=== PATIENT | female | born 1985 | race African-American/Black ===

== ENCOUNTER 2016-10-26 04:06 | Emergency (ER) | payer BC, SELFPAY ==
--- NOTE | 2016-10-26 04:14 | EDM.PDOC ---
ED HPI GI/ABDOMINAL - General Chief Complaint: Gastrointestinal Problem Stated Complaint: RIGHT SIDE PAIN Time Seen by Provider: 10/26/16 04:14 Source of Information: Reports: Patient History Limitations: Reports: No limitations - History of Present Illness INITIAL COMMENTS - FREE TEXT/NARRATIVE: 30-year-old female who is 3-1/2 weeks presents the ED with sudden onset of severe right lateral chest pain. Strong pleuritic component to the pain with every breath hurting. Awoke from sleep around 0300 hours with this pain. When she went to bed she was feeling fine. Her baby was born at 29 weeks gestation and is in [facility] unit. Born by due to severe pre eclampsia. She is traveling frequently by car on a daily basis to [place] of course to spend time with the infant. She was breast-feeding but is not producing much breast milk at this time. He took some Motrin about an hour ago and feels the pain is certainly relieved by this. Current pain is 3/10. She's had a mild cough a few days ago but has not bring up much sputum. Does not feel short of breath. Has not noticed any swelling of her lower extremities. Symptom Onset Date: 10/26/16 Symptom Onset Time: 02:30 (Awoke from sleep with severe pleuritic right-sided chest pain.) Timing/Duration: Reports: Minutes:, Improving Location: other (Right lateral chest pain) Quality: Reports: stabbing, other Severity: moderate Improves with: Denies: defecating Worsens with: Denies: defecating Context: Reports: other (3-1/2 weeks .). Denies: sick contact, bad/ questionable food, out of country travel, recent surgery, recent trauma Associated Symptoms (-Female): Reports: chest pain. 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) - Related Data Allergies/ADRs: Allergies Allergy/AdvReac Type Severity Reaction Status Date / Time No Known Allergies Allergy Verified 10/26/16 04:16 Home Meds: Home Meds Labetalol HCl [Labetalol] 200 mg PO DAILY 10/26/16 [History] Rivaroxaban [Xarelto] 15 mg PO BID #42 tablet 10/26/16 [Rx] Rivaroxaban [Xarelto] 20 mg PO DAILY #30 tablet 10/26/16 [Rx] oxyCODONE HCl/Acetaminophen [Percocet 5-325 mg Tablet] 1 - 2 each PO Q4H PRN # 15 tablet 10/26/16 [Rx] Past Medical History Cardiovascular History: Reports: Hypertension - Past Surgical History GI Surgical History: Reports: Cholecystectomy Social & Family History - Living Situation & Occupation Living situation: Reports: Occupation: unemployed Social History Comment: He is 3-1/2 weeks . Baby was born prematurely at 29 weeks gestation. ED ROS GENERAL - Review of Systems Review Of Systems: See Below Constitutional: Reports: fatigue. Denies: fever, chills, malaise, weakness, decreased appetite, weight loss HEENT: Reports: No symptoms Respiratory: Reports: Pleuritic Chest Pain. Denies: Shortness of Breath, Wheezing (See history of present illness), Cough, Sputum, Hemoptysis, Other Cardiovascular: Reports: Chest pain. Denies: Blood pressure problem (See history present illness), Claudication, Dyspnea on exertion, Edema, Lightheadedness, Orthopnea, Palpitations Endocrine: Reports: no symptoms GI/Abdominal: Reports: No symptoms : Reports: no symptoms Musculoskeletal: Reports: no symptoms Skin: Reports: no symptoms Neurological: Reports: No Symptoms Psychiatric: Reports: No symptoms Hematologic/Lymphatic: Reports: no symptoms Immunologic: Reports: no symptoms ED EXAM, GI/ABD - Physical Exam Exam: See Below Exam Limited By: No limitations General Appearance: alert, WD/WN, anxious, mild distress Eyes: bilateral: normal appearance Neck: normal inspection, supple, non-tender, full range of motion. No: lymphadenopathy (L), lymphadenopathy (R) Respiratory/Chest: no respiratory distress, lungs clear, normal breath sounds, no accessory muscle use, other (Not able to localize the pain anywhere in her chest wall or along her lateral ribs on the right side. I can compress the ribs without any exacerbation of pain. Similarly) Cardiovascular: normal peripheral pulses, regular rate, rhythm, no edema, no gallop, no murmur GI/Abdominal: normal bowel sounds, soft, non tender, no organomegaly, no distention, no abnormal bruit, other ( wound --Pfanastiel incision is healing well.) Back Exam: normal inspection, full range of motion Extremities: normal inspection, normal range of motion, non-tender, no pedal edema, normal capillary refill, other (No evidence of DVT.) Neurological: alert, oriented, CN II-XII intact, normal cognition Psychiatric: normal affect, normal mood Skin Exam: Warm, Dry, Normal color, No rash Course - Vital Signs Last Recorded V/S: Last Vital Signs Temp 36.5 C 10/26/16 04:12 Pulse 95 10/26/16 04:12 Resp 16 10/26/16 04:12 BP 137/85 10/26/16 04:12 Pulse Ox 99 10/26/16 04:12 - Orders/Labs/Meds Orders: Active Orders 24 hr Category Date Time Status Chest 2V [CR] Stat Exams 10/26/16 04:31 Taken Chest PE [Ang Chest] [CT] Stat Exams 10/26/16 05:29 Taken Sodium Chloride 0.9% [Normal Saline] 1,000 ml Med 10/26/16 05:30 Active IV ASDIRECTED Sodium Chloride 0.9% [Normal Saline] 100 ml Med 10/26/16 06:00 Active IV ASDIRECTED Medication Orders Sodium Chloride (Normal Saline) 1,000 mls @ 100 mls/hr IV ASDIRECTED MARTÍNEZ Last Admin: 10/26/16 05:36 Dose: 100 mls/hr Sodium Chloride (Normal Saline) 100 mls @ 60 mls/hr IV ASDIRECTED MARTÍNEZ Last Admin: 10/26/16 06:09 Dose: 60 mls/hr Labs: Laboratory Tests 10/26/16 10/26/16 10/26/16 Range/Units 04:45 04:45 04:45 WBC 8.88 (3.98-10.04) K/mm3 RBC 4.51 (3.98-5.22) M/mm3 Hgb 11.0 L (11.2-15.7) gm/L Hct 34.4 (34.1-44.9) % MCV 76.3 L (79.4-94.8) fl MCH 24.4 L (25.6-32.2) pg MCHC 32.0 L (32.2-35.5) g/dl RDW Std Deviation 45.1 (36.4-46.3) fL Plt Count 366 (182-369) K/mm3 MPV 9.2 L (9.4-12.3) fl Neutrophils % (Manual) 70 H (40-60) % Band Neutrophils % 0 (0-10) % Lymphocytes % (Manual) 21 (20-40) % Atypical Lymphs % 0 % Monocytes % (Manual) 6 (2-10) % Eosinophils % (Manual) 3 (0.7-5.8) % Basophils % (Manual) 0 L (0.1-1.2) Platelet Estimate Adequate RBC Morph Comment Normal D-Dimer, Quantitative 10.07 H (0.19-0.59) mg/L Sodium 137 (136-145) mEq/L Potassium 3.5 (3.5-5.1) mEq/L Chloride 101 (98-107) mEq/L Carbon Dioxide 25 (21-32) mEq/L Anion Gap 14.5 (5-15) BUN 11 (7-18) mg/dL Creatinine 1.0 (0.55-1.02) mg/dL Est Cr Clr Drug Dosing 66.24 mL/min Estimated GFR (MDRD) > 60 (>60) mL/min BUN/Creatinine Ratio 11.0 L (14-18) Glucose 113 H (74-106) mg/dL Calcium 9.0 (8.5-10.1) mg/dL Total Bilirubin 0.2 (0.2-1.0) mg/dL AST 15 (15-37) U/L ALT 25 (14-59) U/L Alkaline Phosphatase 134 H (46-116) U/L C-Reactive Protein 7.3 H* (<1.0) mg/dL Total Protein 7.5 (6.4-8.2) g/dl Albumin 3.1 L (3.4-5.0) g/dl Globulin 4.4 gm/dL Albumin/Globulin Ratio 0.7 L (1-2) Meds: Medications Generic Name Dose Route Start Last Admin Trade Name Freq PRN Reason Stop Dose Admin Sodium Chloride 1,000 mls @ 100 mls/hr 10/26/16 05:30 10/26/16 05:36 Normal Saline IV 100 mls/hr ASDIRECTED MARTÍNEZ Administration Sodium Chloride 100 mls @ 60 mls/hr 10/26/16 06:00 10/26/16 06:09 Normal Saline IV 60 mls/hr ASDIRECTED MARTÍNEZ Administration Discontinued Medications Generic Name Dose Route Start Last Admin Trade Name Bennett PRN Reason Stop Dose Admin Iopamidol 100 ml 10/26/16 05:52 10/26/16 06:09 [id number] (76%) IVPUSH 10/26/16 05:53 70 ml ONETIME ONE Administration Iopamidol 50 ml 10/26/16 05:52 10/26/16 06:09 [id number] (76%) IVPUSH 10/26/16 05:53 10 ml ONETIME ONE Administration Sodium Chloride 10 ml 10/26/16 05:52 10/26/16 06:09 Saline Flush FLUSH 10/26/16 05:53 10 ml ONETIME ONE Administration - Radiology Interpretation Free Text/Narrative:: 30-year-old female with [place] descent presents to the ED for evaluation of acute onset of pleuritic right-sided chest pain that awoke her from sleep around 0-30 hours this morning. She was recently ill with an upper respiratory tract infection but she states her cough is quite mild at that time. She has no associated fever or chills. No she is 3-1/2 weeks and her baby was born at 29 weeks gestation. She been traveling daily to [place] to the unit to see the baby. No history of DVT. She took Motrin and the pain has subsided a good deal she rates it as a 2 or 3/10 now. Every breath was very painful initially. Oxygen saturations is 99% in the ED and she is not reveal any signs of respiratory distress. Plan d-dimer will be done with routine lab work including a CRP. 2 view chest x-ray will be obtained as well. - Re-Assessments/Exams Free Text/Narrative Re-Assessment/Exam: 10/26/16 05:00: Two-view chest x-ray reveals mild infiltrate in the inferior portion of the right lung adjacent to the heart .Heart silhouette is normal. 10/26/16 05:20 lab work reveals a normal white count however to 8.88. Differential pending hemoglobin is 11 with hematocrit of 34.4 platelets normal 266,000. Chemistry shows sodium of 137 potassium 3.5 CRP is elevated at 7.3. D- dimer and differential pending. 10/26/16 05:28 Lab called over with critical value. D-Dimer is 10.7. She will thus have IV started with normal saline at 100 mils per hour. Creatinine is 1.0. She will have CT pulmonary angiogram carried out. She reports her pleuritic chest pain is still minor . 10/26/16 06:[address] pulmonary angiogram and it does prove positive for right-sided pulmonary emboli. There is a abnormal focus in the posterior aspect of the right lung suggesting either pulmonary infarction or atelectasis. She'll be treated with Lovenox 90 mg subcutaneously in the abdominal wall until decisions can be made about penitentiary treatment. 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 He'll have labs come and do routine labs for antiphospholipid antibodies factor V mutation or deficiency. Antithrombin deficiency and protein C and protein S. abnormalities. She has a followup appointment with Dr. Gregory tomorrow. I will leave it up to him to help her establish with a physician who will continue to manage her pulmonary embolism. She was advised that she can no longer use NSAIDs such as Motrin which he is taking anticoagulants. I will give her a 15 tablets of Percocet 5 325 mg strength to be taken one tablet every 4-6 hours as needed for pleuritic right-sided chest pain. Departure - Departure Time of Disposition: 06:45 Disposition: Home, Self-Care 01 Condition: fair Clinical Impression: Pulmonary embolism Qualifiers: Pulmonary embolism type: other Chronicity: acute Acute cor pulmonale presence: without acute cor pulmonale Qualified Code(s): I26.99 - Other pulmonary embolism without acute cor pulmonale Prescriptions: Rivaroxaban [Xarelto] 15 mg PO BID #42 tablet Rivaroxaban [Xarelto] 20 mg PO DAILY #30 tablet oxyCODONE HCl/Acetaminophen [Percocet 5-325 mg Tablet] 1 - 2 each PO Q4H PRN # 15 tablet PRN Reason: pain relief. Additional Instructions: Evaluation in the emergency room today in regards to waking from sleep with severe right-sided pleuritic chest pain about 0-30 hours this morning. History reveals a was carried out 3 and half weeks ago to 2 preeclampsia. Baby was born at 29 weeks gestation remains in the care unit in [place]. Plenty of travel almost on a daily basis to see the infant plus recent surgery placed you at increased risk of blood clot formation in your lower extremities. Investigations done through the emergency room today revealed pulmonary embolism or blood clots within the right lung as the cause appear sharp stabbing pain. Further lab tests ordered to see if there is any genetic abnormalities making you were more likely to have blood clots have been ordered. This helps us decide on how long he will need anticoagulant medication. You're given a shot of Lovenox in the emergency room today to start preventing further clotting from occurring. This will last 12 hours. As we discussed you have opted to start Xarelto medication initially 15 mg tablet twice daily which he should take first thing this morning when you get the prescription. This is taken for the first 21 days of treatment and then you are to take 20 mg tablet once daily for the next 4-1/2 months or as directed by your physician. Since she did not have primary care physician I will leave this up to Dr. Gregory to help you decide who to see in terms of followup of pulmonary embolism. Please follow up with him tomorrow as planned. Return to medical care if you develop any fever chills or abnormal bleeding. - My Orders Last 24 Hours: My Active Orders 10/26/16 04:31 Chest 2V [CR] Stat 10/26/16 05:29 Chest PE [Ang Chest] [CT] Stat 10/26/16 05:30 Sodium Chloride 0.9% [Normal Saline] 1,000 ml IV ASDIRECTED 10/26/16 06:00 Sodium Chloride 0.9% [Normal Saline] 100 ml IV ASDIRECTED - Assessment/Plan Last 24 Hours: My Active Orders 10/26/16 04:31 Chest 2V [CR] Stat 10/26/16 05:29 Chest PE [Ang Chest] [CT] Stat 10/26/16 05:30 Sodium Chloride 0.9% [Normal Saline] 1,000 ml IV ASDIRECTED 10/26/16 06:00 Sodium Chloride 0.9% [Normal Saline] 100 ml IV ASDIRECTED
[2016-10-26 04:17] VITALS: BP 137/85
[2016-10-26] MEDS ORDERED: Sodium Chloride 0.9% 1,000 ML IV SCH (05:30)
[2016-10-26] MEDS ORDERED: Iopamidol 755 MG/ML 50 ML Bottle IVPUSH ONE (05:52)
[2016-10-26] MEDS ORDERED: Sodium Chloride 0.9% 10 ML Syringe FLUSH ONE (05:52)
[2016-10-26] MEDS ORDERED: Iopamidol 755 Mg/ML 100 ML Bottle IVPUSH ONE (05:52)
[2016-10-26] MEDS ORDERED: Sodium Chloride 0.9% 100 ML IV SCH (06:00)
[2016-10-26] MEDS ORDERED: Enoxaparin 100 MG/1 ML Syringe SUBCUT ONE (06:28)
--- NOTE | 2016-10-26 06:29 | CT ---
CT chest Technique: Multiple axial sections were obtained through the chest. Intravenous contrast was utilized. Study was performed as a pulmonary angiogram protocol. Findings: Pulmonary arteries are fairly well-opacified. Filling defects are identified within the distal right segmental lower lobe artery with clot extending into the right lower lobe subsegmental arteries. No left-sided pulmonary emboli are identified. Mild parenchymal density is seen within the right lung base either due to atelectasis or developing infarct. Lungs otherwise are clear. Mediastinum shows no adenopathy or mass. No pericardial thickening is seen. Visualized upper abdominal structures appear within normal limits. Impression: 1. Right lower lobe pulmonary emboli. Adjacent parenchymal density either due to atelectasis or infarct. 2. No additional abnormality is identified on CT study of the chest. Diagnostic code #5
--- NOTE | 2016-10-26 07:43 | CR ---
Chest: Two views of the chest were obtained. Comparison: No previous chest x-ray. Heart size and mediastinum are normal. Slight parenchymal density within the right base is seen. Lungs otherwise are clear. Bony structures are unremarkable. Impression: 1. Slight increased density within the right lung base. As mentioned on subsequent chest CT, this finding is either due to atelectasis or development of infarct as patient has right lower lobe pulmonary emboli. Diagnostic code #3
== END 2016-10-26 07:02 | disposition home or self-care (01) ==
LOC: JD.ED 04:06
DX: O88.23 Thromboembolism in the puerperium (principal); I10 Essential (primary) hypertension; Z79.899 Other long term (current) drug therapy; Z90.49 Acquired absence of other specified parts of digestive tract
CPT/HCPCS: 36415; 71020; 71275; 80053; 85025; 85240; 85245; 85246; 85300; 85303; 85306; 85379; 85610; 85613; 85670; 85730; 86140; 86146; 86147; 96360; 96372; 99284; J1650; J7030; J7040; J7050; Q9967; 85598

== ENCOUNTER 2017-10-17 08:54 | Emergency (ER) | payer BC, SELFPAY ==
[2017-10-17 09:14] VITALS: BP 130/95
[2017-10-17] MEDS ORDERED: Sodium Chloride 0.9% 10 ML Syringe FLUSH PRN (09:25)
[2017-10-17] MEDS ORDERED: Sodium Chloride 0.9% 1,000 ML IV ONE (09:25)
[2017-10-17] MEDS ORDERED: Ketorolac 30 MG/ML SDV IVPUSH ONE (09:26)
[2017-10-17] MEDS ORDERED: diphenhydrAMINE 50 MG/ML SDV IVPUSH ONE (09:26)
[2017-10-17] MEDS ORDERED: Prochlorperazine 10 MG/2 ML SDV IVPUSH ONE (09:27)
--- NOTE | 2017-10-17 09:32 | EDM.PDOC ---
ED HPI GENERAL MEDICAL PROBLEM - General Chief Complaint: Headache Stated Complaint: HEADACHE Time Seen by Provider: 10/17/17 09:16 Source of Information: Reports: Patient History Limitations: Reports: No Limitations - History of Present Illness INITIAL COMMENTS - FREE TEXT/NARRATIVE: The patient presents with a frontal headache. This started about 4 days ago. She is on rifampin for latent TB. She was told she cannot take anything more then tylenol. She has no fever or chills. She does have some congestion, runny nose and cough. She has no blurred vision or double vision. She has no numbness or weakness. She does have a history of migraines. She has no nausea or vomiting. Onset: Gradual Duration: Day(s): (4) Location: Reports: Head Quality: Reports: Ache Severity: Moderate Improves with: Reports: None Worsens with: Reports: None Associated Symptoms: Reports: Headaches. Denies: Chest Pain, Cough, Fever/ Chills, Nausea/Vomiting, Shortness of Breath Headache Pain Score (Numeric/FACES): 8 - Related Data Allergies Allergy/AdvReac Type Severity Reaction Status Date / Time No Known Allergies Allergy Verified 10/17/17 09:14 Home Meds: Home Meds Rifampin 300 mg PO BID #240 cap 07/02/17 [Rx] Past Medical History Cardiovascular History: Reports: Hypertension Respiratory History: Reports: TB Genitourinary History: Reports: Renal Calculus - Past Surgical History GI Surgical History: Reports: Cholecystectomy Female Surgical History: Reports: Section Social & Family History - Tobacco Use Smoking Status *Q: Never Smoker - Caffeine Use Caffeine Use: Reports: None - Recreational Drug Use Recreational Drug Use: No - Living Situation & Occupation Living situation: Reports: Occupation: Unemployed ED ROS GENERAL - Review of Systems Review Of Systems: See Below Constitutional: Reports: No Symptoms HEENT: Reports: Other (Congestion and runny nose) Respiratory: Reports: Cough. Denies: Shortness of Breath Cardiovascular: Reports: No Symptoms Endocrine: Reports: No Symptoms GI/Abdominal: Reports: No Symptoms : Reports: No Symptoms Musculoskeletal: Reports: No Symptoms Neurological: Reports: Headache. Denies: Numbness, Weakness - Physical Exam Exam: See Below Exam Limited By: No Limitations General Appearance: Alert, No Apparent Distress Eye Exam: Bilateral Eye: EOMI, PERRL Ears: Normal External Exam Nose: Normal Inspection Head Exam: Atraumatic, Normocephalic Neck: Normal Inspection Respiratory/Chest: No Respiratory Distress, Lungs Clear, Normal Breath Sounds Cardiovascular: Regular Rate, Rhythm, No Edema, No Murmur GI/Abdominal: Soft, Non-Tender, No Organomegaly, No Mass Neuro Exam (Abbreviated): Alert, Oriented, No Motor/Sensory Deficits Course - Vital Signs Last Recorded V/S: Last Vital Signs Temp 97.8 F 10/17/17 09:11 Pulse 72 10/17/17 09:11 Resp 16 10/17/17 09:11 BP 130/95 H 10/17/17 09:11 Pulse Ox 99 10/17/17 09:11 - Orders/Labs/Meds Orders: Active Orders 24 hr Category Date Time Status Peripheral IV Care [RC] . DIRECTED Care 10/17/17 09:25 Active Sodium Chloride 0.9% [Saline Flush] Med 10/17/17 09:25 Active 10 ml FLUSH ASDIRECTED PRN Peripheral IV Insertion Adult [OM.PC] Routine Oth 10/17/17 09:25 Ordered Medication Orders Sodium Chloride (Saline Flush) 10 ml FLUSH ASDIRECTED PRN PRN Reason: Keep Vein Open Last Admin: 10/17/17 09:41 Dose: 10 ml Meds: Medications Generic Name Dose Route Start Last Admin Trade Name Freq PRN Reason Stop Dose Admin Sodium Chloride 10 ml 10/17/17 09:25 10/17/17 09:41 Saline Flush FLUSH 10 ml ASDIRECTED PRN Administration Keep Vein Open Discontinued Medications Generic Name Dose Route Start Last Admin Trade Name Freq PRN Reason Stop Dose Admin Diphenhydramine HCl 50 mg 10/17/17 09:26 10/17/17 09:42 Benadryl IVPUSH 10/17/17 09:27 50 mg ONETIME ONE Administration Sodium Chloride 1,000 mls @ 1,000 mls/hr 10/17/17 09:25 10/17/17 09:37 Normal Saline IV 10/17/17 10:24 1,000 mls/hr ONETIME ONE Administration Ketorolac Tromethamine 30 mg 10/17/17 09:26 10/17/17 09:41 Toradol IVPUSH 10/17/17 09:27 30 mg ONETIME ONE Administration Prochlorperazine Edisylate 10 mg 10/17/17 09:27 10/17/17 09:38 Compazine IVPUSH 10/17/17 09:28 10 mg ONETIME ONE Administration - Re-Assessments/Exams Free Text/Narrative Re-Assessment/Exam: 10/17/17 09:32 I ordered an IV NS 1L bolus, compazine 10mg IV, benadryl 50mg IV and toradol 30mg IV. 10/17/17 10:27 She feels much better. I will discharge her home. Departure - Departure Time of Disposition: 10:30 Disposition: Home, Self-Care 01 Condition: Good Clinical Impression: Migraine - Discharge Information Referrals: PCP,None [Primary Care Provider] - Forms: ED Department Discharge, ED Return to Work/School Form Additional Instructions: Go home and rest in a dark quiet room. Please return if you are worse. - My Orders Last 24 Hours: My Active Orders 10/17/17 09:25 Peripheral IV Care [RC] . DIRECTED Sodium Chloride 0.9% [Saline Flush] 10 ml FLUSH ASDIRECTED PRN Peripheral IV Insertion Adult [OM.PC] Routine - Assessment/Plan Last 24 Hours: My Active Orders 10/17/17 09:25 Peripheral IV Care [RC] . DIRECTED Sodium Chloride 0.9% [Saline Flush] 10 ml FLUSH ASDIRECTED PRN Peripheral IV Insertion Adult [OM.PC] Routine
== END 2017-10-17 10:35 | disposition home or self-care (01) ==
LOC: JD.ED 08:54
DX: G43.909 Migraine, unspecified, not intractable, without status migrainosus (principal); I10 Essential (primary) hypertension; Z79.899 Other long term (current) drug therapy
CPT/HCPCS: 96361; 96374; 96375; 99283; J0780; J1200; J1885; J7040; J7050

== ENCOUNTER 2018-09-11 00:57 | Emergency (ER) | payer BC, MEDICAID ==
[2018-09-11 01:14] VITALS: BP 136/85
[2018-09-11] MEDS ORDERED: Magnesium Citrate Solution 296 ML Bottle PO ONE (01:25)
[2018-09-11] MEDS ORDERED: Dicyclomine 10 MG Cap PO ONE (01:28)
--- NOTE | 2018-09-11 01:31 | EDM.PDOC ---
ED HPI GENERAL MEDICAL PROBLEM - General Chief Complaint: Abdominal Pain Stated Complaint: 13 WKS /SHARP PAINS ON RIGHT SIDE Time Seen by Provider: 09/11/18 01:15 Source of Information: Reports: Patient History Limitations: Reports: No Limitations - History of Present Illness INITIAL COMMENTS - FREE TEXT/NARRATIVE: 32-year-old female presents to the ED with right lateral ana paula-abdominal wall pain. States the pain comes and goes. Suggesting a strong colicky component to the pain. No pain in the flank. No genitourinary complaints. Patient is 13 weeks by dates. Last normal menstrual period was June 11. She's had one previous ultrasound at 9 weeks 4 days gestation. No bleeding per vagina. Did have a laparoscopic cholecystectomy in the past. Has had renal colic in the past. No fever or chills. States her bowel function has been normal. Pain was bad enough that would not allow her to sleep. Onset: Sudden, Other (Him started yesterday.) Onset Date: 09/10/18 Duration: Hour(s):, Intermittent, Waxing/Waning Location: Reports: Abdomen (Right ana paula-abdominal pain mostly mid and lower.) Quality: Reports: Sharp, Stabbing ( cramping pain ), Other ( HEENT is not well localized and has a strong colicky component) Severity: Moderate Improves with: Reports: None Worsens with: Reports: None Context: Denies: Activity Associated Symptoms: Reports: No Other Symptoms. 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.) Right Lower Abdomen Pain Score (Numeric/FACES): 6 - Related Data Allergies Allergy/AdvReac Type Severity Reaction Status Date / Time No Known Allergies Allergy Verified 09/11/18 01:14 Home Meds: Home Meds Aspirin [Adult Aspirin] 81 mg PO DAILY 09/11/18 [History] #103/Iron Fumarate/Fa [ ] 1 tab PO DAILY 09/11/18 [ History] Past Medical History Cardiovascular History: Reports: Hypertension Respiratory History: Reports: TB Genitourinary History: Reports: Renal Calculus - Past Surgical History GI Surgical History: Reports: Cholecystectomy Female Surgical History: Reports: Section Social & Family History - Caffeine Use Caffeine Use: Reports: None - Living Situation & Occupation Living situation: Reports: Occupation: Unemployed ED ROS GENERAL - Review of Systems Review Of Systems: See Below Constitutional: Reports: Fatigue. Denies: Fever, Chills, Malaise HEENT: Reports: No Symptoms Respiratory: Reports: No Symptoms Cardiovascular: Reports: No Symptoms Endocrine: Reports: Fatigue GI/Abdominal: Reports: Abdominal Pain (See history of present illness) : Reports: Frequency, Other (Currently 13 weeks plus gestation) Musculoskeletal: Reports: No Symptoms Skin: Reports: No Symptoms Neurological: Reports: No Symptoms Psychiatric: Reports: No Symptoms Hematologic/Lymphatic: Reports: No Symptoms Immunologic: Reports: No Symptoms ED EXAM, GI/ABD - Physical Exam Exam: See Below Exam Limited By: No Limitations General Appearance: Alert, WD/WN, No Apparent Distress Eyes: Bilateral: Normal Appearance (No scleral icterus) Respiratory/Chest: No Respiratory Distress, Lungs Clear, Normal Breath Sounds, Chest Non-Tender Cardiovascular: Normal Peripheral Pulses, Regular Rate, Rhythm, No Edema, No Gallop, No Murmur, No Rub GI/Abdominal Exam: Soft, Non-Tender, No Organomegaly, Pelvis Stable, Distended ( Bowel sounds are mildly hyperactive throughout. Distended in the upper abdomen diffusely tympanitic to percussion indicating increased air in the abdomen.), Abnormal Bowel Sounds. No: Guarding, Rigid, Rebound (Female) Exam: Fundal Height (Fundus is palpable just above the pubic symphysis compatible with 14 weeks gestation) Back Exam: Normal Inspection, Full Range of Motion. No: CVA Tenderness (L), CVA Tenderness (R) Extremities: Normal Inspection, Normal Range of Motion, Non-Tender, No Pedal Edema Neurological: Alert, Oriented, CN II-XII Intact, Normal Cognition Psychiatric: Normal Affect, Normal Mood Skin Exam: Warm, Dry, Intact, Normal Color, No Rash Course - Vital Signs Last Recorded V/S: Last Vital Signs Temp 36.9 C 09/11/18 01:10 Pulse 81 09/11/18 01:10 Resp 18 09/11/18 01:10 BP 136/85 09/11/18 01:10 Pulse Ox 100 09/11/18 01:10 - Orders/Labs/Meds Labs: Laboratory Tests 09/11/18 Range/Units 01:33 Urine Color Yellow (Yellow) Urine Appearance Clear (Clear) Urine pH 6.5 (5.0-8.0) Ur Specific Mobile 1.015 (1.005-1.030) Urine Protein Negative (Negative) Urine Glucose (UA) Negative (Negative) Urine Ketones Negative (Negative) Urine Occult Blood Negative (Negative) Urine Nitrite Negative (Negative) Urine Bilirubin Negative (Negative) Urine Urobilinogen 0.2 (0.2-1.0) Ur Leukocyte Esterase Negative (Negative) Urine RBC 0-5 (0-5) /hpf Urine WBC 0-5 (0-5) /hpf Ur Epithelial Cells 10-20 H (0-5) /hpf Urine Bacteria Not seen (FEW) /hpf Urine Mucus Not seen (FEW) /hpf Meds: Medications Discontinued Medications Generic Name Dose Route Start Last Admin Trade Name Freq PRN Reason Stop Dose Admin Dicyclomine HCl 20 mg 09/11/18 01:28 09/11/18 01:32 Bentyl PO 09/11/18 01:29 20 mg ONETIME ONE Administration Magnesium Citrate 210 ml 09/11/18 01:25 09/11/18 01:32 Citrate Of Magnesia PO 09/11/18 01:26 210 ml ONETIME ONE Administration - Radiology Interpretation Free Text/Narrative:: 32-year-old female who is 13 weeks gestation today presents to the ED with right -sided intermittent colicky crampy pain. Examination reveals very active bowel sounds in the right hemiabdomen. The abdomen is also slightly distended and tympanitic to percussion suggesting extra air on board. The fundus is just barely palpable above the pubic symphysis. A bedside ultrasound performed shows the fetus to be extremely active with good heart tones in the 170s. No subchorionic hemorrhage is evident. Can palpate her right hemicolon to suggest that she has some constipation issues. Urinalysis will be performed to rule out any urinary tract infection or blood has she has a history of renal colic but her pain is more compatible with intestinal colic she'll be given Bentyl 20 mg by mouth. - Re-Assessments/Exams Free Text/Narrative Re-Assessment/Exam: 09/11/18 01:52 urinalysis shows no signs of infection. 20-30 epithelial cells only. Patient will be given Citroma 7 ounces by mouth mixed with 5 ounces of juice of choice to provide bowel cleanse. To return to medical care if not markedly improved after bowel cleanse or pain worsens over the next 12 hours Departure - Departure Time of Disposition: 01:53 Disposition: Home, Self-Care 01 Condition: Fair Clinical Impression: Second trimester Abdominal pain Qualifiers: Abdominal location: right lower quadrant Qualified Code(s): R10.31 - Right lower quadrant pain - Discharge Information *PRESCRIPTION DRUG MONITORING PROGRAM REVIEWED*: Not Applicable *COPY OF PRESCRIPTION DRUG MONITORING REPORT IN PATIENT CHANEL: Not Applicable Instructions: Constipation, Adult, [id number] Referrals: Adry Byrne MD [Primary Care Provider] - Forms: ED Department Discharge Additional Instructions: Evaluation the emergency room tonight in regards to development of right ana paula- abdominal pain. The pain comes and goes suggesting a colicky component which means cramping. I can feel increased stool in the right hemicolon on examination. Aby done at the bedside shows no problems with current mckoy . Baby is very active with heartbeat in the 170s. No evidence of any injury or bleeding in the placenta. Clinically there is no evidence of appendicitis. Urinalysis also shows no evidence of infection or blood to suggest kidney stone. You're given Bentyl 20 mg by mouth which is safe in to help with repeat action of abdominal cramping pain. Suggest use of magnesium citrate 7 ounces mixed with 5 ounces of juice to be taken once. This will start to work in 1-2 hours and her bowels will usually move 3 or 4 times. This should relieve your abdominal pain completely. However if the pain is not markedly improved or worsens over the next 12 hours you are to return to the ED.
== END 2018-09-11 02:00 | disposition home or self-care (01) ==
LOC: JD.ED 00:57
DX: O99.89 Other specified diseases and conditions complicating pregnancy, childbirth and the puerperium (principal); R10.31 Right lower quadrant pain; I10 Essential (primary) hypertension; Z3A.13 13 weeks gestation of pregnancy
CPT/HCPCS: 81001; 99284; A9270; 99283

== ENCOUNTER 2019-03-02 04:21 | Inpatient (IN) | payer MEDICAID ==
[2019-03-02] MEDS ORDERED: Ampicillin 2 GM in Sodium Chloride 0.9% 100 ML IV ONE (04:41)
[2019-03-02] MEDS ORDERED: Nalbuphine 10 MG/1 ML Vial IVPUSH PRN (04:41)
[2019-03-02] MEDS ORDERED: Ondansetron 4 MG/2 ML SDV IVPUSH PRN ×2 (04:41→05:04)
[2019-03-02] MEDS ORDERED: Lidocaine 1% 50 ML MDV INJECT ONE (04:41)
[2019-03-02] MEDS ORDERED: Sodium Chloride 0.9% 10 ML Syringe FLUSH PRN (04:41)
[2019-03-02] MEDS ORDERED: Oxytocin/Lactated Ringers 10 UNIT/1,000 ML BAG IV SCH ×2 (04:45)
[2019-03-02] MEDS ORDERED: fentaNYL 100 MCG/2 ML SDV EPIDUR PRN (05:04)
[2019-03-02] MEDS ORDERED: ePHEDrine 50 MG/ML SDV IVPUSH PRN (05:04)
[2019-03-02] MEDS: Lactated Ringers 1,000 ML IV SCH ×3 (05:10→20:35)
--- NOTE | 2019-03-02 05:10 | PCM.PREANE ---
Preanesthetic Assessment - Anesthesia/Transfusion/Family Hx Anesthesia History: Prior Anesthesia Without Reaction Family History of Anesthesia Reaction: No Transfusion History: No Prior Transfusion(s) Intubation History: Unknown - Review of Systems General: No Symptoms Pulmonary: No Symptoms (History of pulmonary emboli 3 weeks post with first : patient currently on asa, and daily lovenox injections, last injection= 03/01/19 1130) Cardiovascular: No Symptoms Gastrointestinal: No Symptoms Neurological: No Symptoms, Headache Other: Reports: None - Physical Assessment NPO Status Date: 03/01/19 NPO Status Time: 00:01 Vital Signs: Temp: 97.5F BP: 123/84 Resp: 16 HR: 100 Sat: 98% Height: 1.57 m Weight: 103.873 kg ASA Class: 2 Mental Status: Alert & Oriented x3 Airway Class: Mallampati = 2 Dentition: Reports: Normal Dentition, Caries Thyro-Mental Finger Breadths: 3 Mouth Opening Finger Breadths: 3 ROM/Head Extension: Full Lungs: Clear to Auscultation, Normal Respiratory Effort Cardiovascular: Regular Rate, Regular Rhythm, No Murmurs - Allergies Allergies/Adverse Reactions: Allergies Allergy/AdvReac Type Severity Reaction Status Date / Time No Known Allergies Allergy Verified 09/11/18 01:14 - Anesthesia Plan Pre-Op Medication Ordered: None - Acknowledgements Anesthesia Type Planned: Spinal, Epidural Pt an Appropriate Candidate for the Planned Anesthesia: Yes Alternatives and Risks of Anesthesia Discussed w Pt/Guardian: Yes Pt/Guardian Understands and Agrees with Anesthesia Plan: Yes PreAnesthesia Questionnaire Cardiovascular History: Reports: Hypertension Respiratory History: Reports: TB Genitourinary History: Reports: Renal Calculus 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: - Infectious Disease History Infectious Disease History: Reports: TB - Past Surgical History GI Surgical History: Reports: Cholecystectomy Female Surgical History: Reports: Section - HOME MEDS Home Medications: Home Meds Aspirin [Adult Aspirin] 81 mg PO DAILY 09/11/18 [History] Enoxaparin Sodium [Lovenox] 40 mg SQ DAILY 09/11/18 [History] #103/Iron Fumarate/Fa [ ] 1 tab PO DAILY 09/11/18 [ History] - CURRENT (IN HOUSE) MEDS Current Meds: Current Medications Ampicillin Sodium 2 gm/ Sodium (Chloride) 100 mls @ 200 mls/hr IV ONETIME ONE Stop: 03/02/19 05:10 Ampicillin Sodium 1 gm/ Sodium (Chloride) 100 mls @ 200 mls/hr IV Q4H MARTÍNEZ Lactated Ringer's (Ringers, Lactated) 1,000 mls @ 100 mls/hr IV ASDIRECTED MARTÍNEZ Oxytocin/Lactated Ringer's (Pitocin In Lr 10 Units/1,000 Ml) 10 unit in 1,000 mls @ 12 mls/hr IV TITRATE MARTÍNEZ; Protocol Oxytocin/Lactated Ringer's (Pitocin In Lr 10 Units/1,000 Ml) 10 unit in 1,000 mls @ 100 mls/hr IV .CONTINUOUS MARTÍNEZ; Protocol Nalbuphine HCl (Nubain) 10 mg IVPUSH Q2H PRN PRN Reason: Pain Ondansetron HCl (Zofran) 4 mg IVPUSH Q4H PRN PRN Reason: Nausea/Vomiting Sodium Chloride (Saline Flush) 10 ml FLUSH ASDIRECTED PRN PRN Reason: Keep Vein Open Discontinued Medications Lidocaine HCl (Xylocaine 1%) 50 ml INJECT ONETIME ONE Stop: 03/02/19 04:42
[2019-03-02] MEDS ORDERED: Bupivacaine/fentaNYL/NS 100 ML Bag EPIDUR SCH (05:15)
--- NOTE | 2019-03-02 06:08 | PCM.LDHP ---
L&D History of Present Illness - General Date of Service: 03/02/19 Admit Problem/Dx: Patient Status Order with Admit Dx/Problem 03/02/19 04:41 Patient Status [ADT] Routine Admission Diagnosis/Problem Admission Diagnosis/Problem Source of Information: Patient History Limitations: Reports: No Limitations - History of Present Illness Introduction:: Patient is a 33-year-old at 37-5/7 weeks gestation who presents this morning with premature rupture of membranes. Feels that water broke around 4: 00 or so this morning. Only noting mild contractions. No other specific concerns or complaints. 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 Para: 1 LMP (Approximate): Hematologic History: Reports: Anticoagulation Therapy (Prophylactic Lovenox) - Infectious Disease History Infectious Disease History: Reports: TB - Past Surgical History GI Surgical History: Reports: Cholecystectomy Female Surgical History: Reports: Section Social & Family History - Tobacco Use Smoking Status *Q: Never Smoker - Caffeine Use Caffeine Use: Reports: None - Alcohol Use Alcohol Use History: No - Recreational Drug Use Recreational Drug Use: No - Living Situation & Occupation Living situation: Reports: Occupation: Unemployed H&P Review of Systems - Review of Systems: Review Of Systems: See Below General: Reports: No Symptoms Pulmonary: Reports: No Symptoms Cardiovascular: Reports: No Symptoms Gastrointestinal: Reports: No Symptoms Genitourinary: Reports: No Symptoms Musculoskeletal: Reports: No Symptoms Psychiatric: Reports: No Symptoms Neurological: Reports: No Symptoms L&D Exam - Exam Exam: See Below - Vital Signs Weight: 103.873 kg - OB Specific Contraction Intensity: Irritability Movement: Active Heart Tones: Present Heart Tones per Min: 145 Heart Rate (FHR) Variability: Moderate (6-25 bmp) Presentation: Vertex - Sommer Score Sommer Score Cervix Position: Midposition Sommer Score Consistency: Soft Sommer Score Effacement: 31-50% Sommer Score Dilation: Closed Sommer Score Infant's Station: -3 Sommer Score Total: 4 - Exam General: Alert, Oriented, Cooperative Lungs: Clear to Auscultation, Normal Respiratory Effort Cardiovascular: Regular Rate, Regular Rhythm GI/Abdominal Exam: Soft, Non-Tender Genitourinary: Normal external exam Back Exam: Normal Inspection Extremities: Normal Inspection Skin: Warm, Dry, Intact - Patient Data Lab Results Last 24 hrs: Laboratory Results - last 24 hr 03/02/19 03/02/19 Range/Units 05:15 05:15 WBC 7.29 (3.98-10.04) K/mm3 RBC 5.34 H (3.98-5.22) M/mm3 Hgb 12.5 D (11.2-15.7) gm/L Hct 38.6 (34.1-44.9) % MCV 72.3 L D (79.4-94.8) fl MCH 23.4 L (25.6-32.2) pg MCHC 32.4 (32.2-35.5) g/dl RDW Std Deviation 51.9 H (36.4-46.3) fL Plt Count 285 D (182-369) K/mm3 MPV 10.4 (9.4-12.3) fl Neut % (Auto) 63.0 (34.0-71.1) % Lymph % (Auto) 27.4 (19.3-51.7) % [place] % (Auto) 8.1 (4.7-12.5) % Eos % (Auto) 0.5 L (0.7-5.8) Baso % (Auto) 0.3 (0.1-1.2) % Neut # (Auto) 4.59 (1.56-6.13) K/mm3 Lymph # (Auto) 2.00 (1.18-3.74) K/mm3 [place] # (Auto) 0.59 H (0.24-0.36) K/mm3 Eos # (Auto) 0.04 (0.04-0.36) K/mm3 Baso # (Auto) 0.02 (0.01-0.08) K/mm3 POC Glucose 103 (70-105) mg/dL Result Diagrams: 03/02/19 05:15 - Problem List (1) 37 weeks gestation of SNOMED Code(s): 76415650 ICD Code: Z3A.37 - 37 WEEKS GESTATION OF Status: Acute Current Visit: Yes (2) PROM (premature rupture of membranes) SNOMED Code(s): 57581864 ICD Code: O42.90 - CHARBEL ROM, 7TH0 BETW RUPT & ONST LABR, UNSP WEEKS OF GEST Status: Acute Current Visit: Yes Qualifiers: PROM gestational age: full term (3) History of SNOMED Code(s): 722140197 ICD Code: Z98.891 - HISTORY OF UTERINE SCAR FROM PREVIOUS SURGERY Status: Acute Current Visit: Yes (4) History of severe pre-eclampsia SNOMED Code(s): 343634186 ICD Code: Z87.59 - PERSONAL HISTORY OF COMP OF PREG, CHLDBRTH AND THE PUERP Status: Acute Current Visit: Yes (5) History of pulmonary embolism SNOMED Code(s): 329489776 ICD Code: Z86.711 - PERSONAL HISTORY OF PULMONARY EMBOLISM Status: Acute Current Visit: Yes (6) Gestational diabetes requiring insulin SNOMED Code(s): 92072786, 939006747 ICD Code: O24.414 - GESTATIONAL DIABETES IN , INSULIN CONTROLLED Status: Acute Current Visit: Yes Problem List Initiated/Reviewed/Updated: Yes Orders Last 24hrs: Active Orders 24 hr Category Date Time Status Patient Status [ADT] Routine ADT 03/02/19 04:41 Active Activity as Tolerated [RC] PFP Care 03/02/19 04:41 Active Blood Glucose Check, Bedside [RC] Q4HR Care 03/02/19 05:00 Active Communication Order [RC] ASDIRECTED Care 03/02/19 04:41 Active Heart Tones [RC] ASDIRECTED Care 03/02/19 04:41 Active Notify Provider [RC] ASDIRECTED Care 03/02/19 05:04 Active Notify Provider [RC] PFP Care 03/02/19 04:41 Active Notify Provider [RC] PRN Care 03/02/19 04:41 Active Oxygen Therapy [RC] ASDIRECTED Care 03/02/19 05:04 Active Peripheral IV Care [RC] . DIRECTED Care 03/02/19 04:41 Active Pulse Oximetry [RC] ASDIRECTED Care 03/02/19 05:04 Active Urinary Catheter Assessment [RC] ASDIRECTED Care 03/02/19 04:41 Active Vital Signs [RC] PER UNIT ROUTINE Care 03/02/19 04:41 Active Regular Diet [DIET] Diet 03/02/19 Breakfast Active CBC WITH AUTO DIFF [HEME] Stat Lab 03/02/19 05:15 Results RAPID PLASMA REAGIN,RPR [CHEM] Routine Lab 03/02/19 05:15 Received TYPE AND SCREEN [BBK] Stat Lab 03/02/19 05:15 Received Ampicillin 1 gm Med 03/02/19 09:00 Active Sodium Chloride 0.9% [Normal Saline] 100 ml IV Q4H Bupivacaine/fentaNYL/NS [fentaNYL/Bupivacaine/NS 2 MCG- Med 03/02/19 05:15 Active 0.125% 100 ML] 100 ml EPIDUR ASDIRECTED Lactated Ringers [Ringers, Lactated] 1,000 ml Med 03/02/19 04:45 Active IV ASDIRECTED Nalbuphine [Nubain] Med 03/02/19 04:41 Active 10 mg IVPUSH Q2H PRN Ondansetron [Zofran] Med 03/02/19 05:04 Active 4 mg IVPUSH ONETIME PRN Ondansetron [Zofran] Med 03/02/19 04:41 Active 4 mg IVPUSH Q4H PRN Oxytocin/Lactated Ringers [Pitocin in LR 10 Units/1,000 Med 03/02/19 04:45 Active ML] 10 unit in 1,000 ml IV .CONTINUOUS Oxytocin/Lactated Ringers [Pitocin in LR 10 Units/1,000 Med 03/02/19 04:45 Active ML] 10 unit in 1,000 ml IV TITRATE Sodium Chloride 0.9% [Saline Flush] Med 03/02/19 04:41 Active 10 ml FLUSH ASDIRECTED PRN ePHEDrine [ePHEDrine sulfate] Med 03/02/19 05:04 Active 5 mg IVPUSH ASDIRECTED PRN fentaNYL [Sublimaze] Med 03/02/19 05:04 Active 100 mcg EPIDUR Q3H PRN Electronic Heart Tones Ext w TOCO [WOMSER] Oth 03/02/19 04:41 Ordered Routine Electronic Heart Tones Internal [WOMSER] Per Unit Oth 03/02/19 04:41 Ordered Routine Peripheral IV Insertion Adult [OM.PC] Routine Oth 03/02/19 04:41 Ordered Resuscitation Status Routine Resus Stat 03/02/19 04:41 Ordered Medication Orders Ephedrine Sulfate (Ephedrine Sulfate) 5 mg IVPUSH ASDIRECTED PRN PRN Reason: Hypotension Fentanyl (Sublimaze) 100 mcg EPIDUR Q3H PRN PRN Reason: Pain Fentanyl/Bupivacaine HCl (Fentanyl/Bupivacaine/Ns 2 Mcg-0.125% 100 Ml) 100 ml EPIDUR ASDIRECTED MARTÍNEZ Ampicillin Sodium 1 gm/ Sodium (Chloride) 100 mls @ 200 mls/hr IV Q4H MARTÍNEZ Lactated Ringer's (Ringers, Lactated) 1,000 mls @ 100 mls/hr IV ASDIRECTED MARTÍNEZ Last Admin: 03/02/19 05:10 Dose: 100 mls/hr Oxytocin/Lactated Ringer's (Pitocin In Lr 10 Units/1,000 Ml) 10 unit in 1,000 mls @ 12 mls/hr IV TITRATE MARTÍNEZ; Protocol Oxytocin/Lactated Ringer's (Pitocin In Lr 10 Units/1,000 Ml) 10 unit in 1,000 mls @ 100 mls/hr IV .CONTINUOUS MARTÍNEZ; Protocol Nalbuphine HCl (Nubain) 10 mg IVPUSH Q2H PRN PRN Reason: Pain Ondansetron HCl (Zofran) 4 mg IVPUSH Q4H PRN PRN Reason: Nausea/Vomiting Ondansetron HCl (Zofran) 4 mg IVPUSH ONETIME PRN PRN Reason: Nausea/Vomiting Sodium Chloride (Saline Flush) 10 ml FLUSH ASDIRECTED PRN PRN Reason: Keep Vein Open Assessment/Plan Comment:: 33-year-old at 37 and 57 weeks presents with PROM * Labs ordered * Patient with a history of pulmonary embolism diagnosed post through the ER after her last . Has been on prophylactic Lovenox throughout this . Last dose was yesterday at 11 AM. We'll continue to hold throughout course of labor, but restart and continue for 6 weeks . * History of at 28 weeks for severe preeclampsia. Operative note obtained from that delivery and does document a low transverse . Patient interested in trial of labor. Has previously been counseled on risks and benefits of total active. Consent signed. * GBS positive, will start ampicillin * Patient with only minimal contractions. Will start Pitocin for augmentation * GODMA2 - on Levemir 12 units nightly. Blood sugars q4 in labor * Pain management per patient preference
[2019-03-02] MEDS: Ampicillin 1 GM in Sodium Chloride 0.9% 100 ML IV SCH ×4 (09:25→20:36)
[2019-03-03] MEDS ORDERED: Bupivacaine 0.25% 10 ML SDV ONE
[2019-03-03] MEDS: Lactated Ringers 1,000 ML IV SCH (00:11)
[2019-03-03] MEDS: Ampicillin 1 GM in Sodium Chloride 0.9% 100 ML IV SCH ×2 (01:00→11:25)
--- NOTE | 2019-03-03 05:50 | PCM.SN ---
- Free Text/Narrative Note: Stage I - Patient presented with SROM. Progressed slowly to complete with reassuring FHT, epidural and good blood sugars. STage II - of viable male, weight 3230g, 7/8 APGARS at 0510. Head delivered in controlled manner over intact perineum. Body and shoulders followed without difficulty. Tight nuchal cord x2. To maternal abdomen. Cord clamped and cut and baby to warmer. Stage III - placenta delivered in some fragments, manual exploration revealed small fragment that was removed. INtact lower uterine segment. Atony thereafter with EBL 600. Cytotec buccal and pitocin given. 2nd degree laceration repaired with 3-0 vicryl.
[2019-03-03] MEDS ORDERED: Misoprostol 200 MCG Tab ONE (06:00)
[2019-03-03] MEDS ORDERED: Docusate Sodium 100 MG Cap PO PRN (06:07)
[2019-03-03] MEDS ORDERED: Acetaminophen 325 MG Tab PO PRN (06:07)
[2019-03-03] MEDS ORDERED: Benzocaine/Menthol 20%-0.5% Spray 56 GM Canister TOP PRN (06:07)
[2019-03-03] MEDS ORDERED: Witch Hazel Medicated Pads 40/Jar TOP PRN (06:07)
[2019-03-03] MEDS: Ibuprofen 600 MG Tab PO PRN ×2 (07:42→23:12)
--- NOTE | 2019-03-03 09:49 | PCM48HPAN ---
Post Anesthesia Note - EVALUATION WITHIN 48HRS OF ANESTHETIC Vital Signs in Normal Range: Yes Patient Participated in Evaluation: Yes Respiratory Function Stable: Yes Airway Patent: Yes Cardiovascular Function Stable: Yes Hydration Status Stable: Yes Pain Control Satisfactory: Yes Nausea and Vomiting Control Satisfactory: Yes Mental Status Recovered: Yes Vital Signs: Last Vital Signs Temp 36.4 C 03/02/19 04:41 Pulse 96 03/02/19 08:01 Resp 16 03/02/19 04:41 BP 121/75 03/02/19 08:01 Pulse Ox 98 03/02/19 04:41
[2019-03-03] MEDS ORDERED: Enoxaparin 40 MG/0.4 ML Syringe SUBCUT SCH (11:00)
[2019-03-03] MEDS: Enoxaparin 40 MG/0.4 ML Syringe SUBCUT SCH (17:59)
--- NOTE | 2019-03-04 08:41 | PCM.DCSUM1 ---
Discharge Summary - Hospital Course Diagnosis: Stroke: No - Discharge Data Discharge Date: 03/04/19 Discharge Disposition: Home, Self-Care 01 Condition: Good - Patient Instructions Diet: Usual Diet as Tolerated Activity: No Strenuous Activities Driving: May Drive Today Showering/Bathing: May Shower Notify Provider of: Fever - Discharge Plan *PRESCRIPTION DRUG MONITORING PROGRAM REVIEWED*: No *COPY OF PRESCRIPTION DRUG MONITORING REPORT IN PATIENT CHANEL: No Home Medications: Home Meds Aspirin [Adult Aspirin] 81 mg PO DAILY 09/11/18 [History] Enoxaparin Sodium [Lovenox] 40 mg SQ DAILY 09/11/18 [History] #103/Iron Fumarate/Fa [ ] 1 tab PO DAILY 09/11/18 [ History] Referrals: Adry Byrne MD [Primary Care Provider] - (2 weeks) - Discharge Summary/Plan Comment DC Time >30 min.: No - General Info Date of Service: 03/04/19 Functional Status: Reports: Pain Controlled - Review of Systems General: Reports: No Symptoms HEENT: Reports: No Symptoms Pulmonary: Reports: No Symptoms Cardiovascular: Reports: No Symptoms Gastrointestinal: Reports: No Symptoms Genitourinary: Reports: No Symptoms Musculoskeletal: Reports: No Symptoms Skin: Reports: No Symptoms Neurological: Reports: No Symptoms Psychiatric: Reports: No Symptoms - Patient Data Vitals - Most Recent: Last Vital Signs Temp 36.6 C 03/04/19 03:05 Pulse 96 03/04/19 03:05 Resp 14 03/04/19 03:05 BP 124/74 03/04/19 03:05 Pulse Ox 96 03/04/19 03:05 Weight - Most Recent: 103.873 kg I&O - Last 24 hours: Intake & Output 03/03/19 03/04/19 03/04/19 22:59 06:59 14:59 Intake Total 240 Balance 240 Lab Results - Last 24 hrs: Laboratory Results - last 24 hr 03/03/19 03/03/19 Range/Units 15:13 20:25 POC Glucose 91 103 (70-105) mg/dL Med Orders - Current: Current Medications Acetaminophen (Tylenol) 650 mg PO Q6H PRN PRN Reason: mild pain or fever Benzocaine/Menthol (Dermoplast Pain Relief [place]) 0 gm TOP ASDIRECTED PRN PRN Reason: Perineal Comfort Measure Docusate Sodium (Colace) 100 mg PO BID PRN PRN Reason: Constipation Last Admin: 03/03/19 07:42 Dose: 100 mg Enoxaparin Sodium (Lovenox) 40 mg SUBCUT 1100 MARTÍNEZ Last Admin: 03/03/19 17:59 Dose: 40 mg Ibuprofen (Motrin) 600 mg PO Q6H PRN PRN Reason: Mild pain or fever Last Admin: 03/03/19 23:12 Dose: 600 mg Witch Josey (Tucks) 1 pad TOP ASDIRECTED PRN PRN Reason: Pain Discontinued Medications Bupivacaine HCl (Sensorcaine-Mpf 0.25%) 10 ml .ROUTE .STK-MED ONE Stop: 03/03/19 00:01 Enoxaparin Sodium (Lovenox) 40 mg SUBCUT DAILY MARTÍNEZ Last Admin: 03/03/19 12:04 Dose: Not Given Ephedrine Sulfate (Ephedrine Sulfate) 5 mg IVPUSH ASDIRECTED PRN PRN Reason: Hypotension Last Admin: 03/02/19 21:13 Dose: 5 mg Fentanyl (Sublimaze) 100 mcg EPIDUR Q3H PRN PRN Reason: Pain Last Admin: 03/02/19 20:52 Dose: 100 mcg Fentanyl/Bupivacaine HCl (Fentanyl/Bupivacaine/Ns 2 Mcg-0.125% 100 Ml) 100 ml EPIDUR ASDIRECTED MARTÍNEZ Last Admin: 03/02/19 20:53 Dose: 100 ml Ampicillin Sodium 2 gm/ Sodium (Chloride) 100 mls @ 200 mls/hr IV ONETIME ONE Stop: 03/02/19 05:10 Last Admin: 03/02/19 05:10 Dose: 200 mls/hr Ampicillin Sodium 1 gm/ Sodium (Chloride) 100 mls @ 200 mls/hr IV Q4H [facility] Last Admin: 03/03/19 11:25 Dose: Not Given Lactated Ringer's (Ringers, Lactated) 1,000 mls @ 100 mls/hr IV ASDIRECTED MARTÍNEZ Last Admin: 03/03/19 00:11 Dose: 100 mls/hr Oxytocin/Lactated Ringer's (Pitocin In Lr 10 Units/1,000 Ml) 10 unit in 1,000 mls @ 12 mls/hr IV TITRATE MARTÍNEZ; Protocol Last Titration: 03/02/19 20:23 Dose: Infused Oxytocin/Lactated Ringer's (Pitocin In Lr 10 Units/1,000 Ml) 10 unit in 1,000 mls @ 100 mls/hr IV .CONTINUOUS MARTÍNEZ; Protocol Lidocaine HCl (Xylocaine 1%) 50 ml INJECT ONETIME ONE Stop: 03/02/19 04:42 Last Admin: 03/03/19 11:25 Dose: Not Given Misoprostol (Cytotec) 600 mcg .ROUTE .STK-MED ONE Stop: 03/03/19 06:01 Nalbuphine HCl (Nubain) 10 mg IVPUSH Q2H PRN PRN Reason: Pain Ondansetron HCl (Zofran) 4 mg IVPUSH Q4H PRN PRN Reason: Nausea/Vomiting Ondansetron HCl (Zofran) 4 mg IVPUSH ONETIME PRN PRN Reason: Nausea/Vomiting Sodium Chloride (Saline Flush) 10 ml FLUSH ASDIRECTED PRN PRN Reason: Keep Vein Open - Exam General: Reports: Alert, Oriented HEENT: Reports: Pupils Equal, Pupils Reactive, EOMI, Mucous Membr. Moist/[place] Neck: Reports: Supple Lungs: Reports: Clear to Auscultation, Normal Respiratory Effort Cardiovascular: Reports: Regular Rate, Regular Rhythm GI/Abdominal Exam: Normal Bowel Sounds, Soft, Non-Tender, No Organomegaly, No Distention, No Abnormal Bruit, No Mass Rectal (Female) Exam: Normal Exam, Normal Rectal Tone Back Exam: Reports: Normal Inspection, Full Range of Motion Extremities: Normal Inspection, Normal Range of Motion, Non-Tender, No Pedal Edema, Normal Capillary Refill Skin: Reports: Warm, Dry, Intact Wound/Incisions: Reports: Healing Well Neurological: Reports: No New Focal Deficit Psy/Mental Status: Reports: Alert, Normal Affect, Normal Mood
[2019-03-04 10:31] VITALS: BP 104/67
[2019-03-04] MEDS: Enoxaparin 40 MG/0.4 ML Syringe SUBCUT SCH (11:15)
== END 2019-03-04 11:30 | disposition home or self-care (01) | DRG 807 ==
LOC: JD.OBCHECK 04:21 → JD.OB 04:21 → JD.OBCHECK 04:40 → JD.OB 04:41 → OBSVTOIN 03-03 05:10
PROVIDERS: ADMIT Obstetrics & Gynecology; ATTEND Obstetrics & Gynecology
PROC: 10E0XZZ Delivery of Products of Conception, External Approach (ICD-10-PCS; principal; 2019-03-03)
PROC: 0KQM0ZZ Repair Perineum Muscle, Open Approach (ICD-10-PCS; 2019-03-03)
DX: O42.12 Full-term premature rupture of membranes, onset of labor more than 24 hours following rupture (principal); O24.424 Gestational diabetes mellitus in childbirth, insulin controlled; O69.1XX0 Labor and delivery complicated by cord around neck, with compression, not applicable or unspecified; O70.1 Second degree perineal laceration during delivery; O16.4 Unspecified maternal hypertension, complicating childbirth; O99.824 Streptococcus B carrier state complicating childbirth; Z3A.37 37 weeks gestation of pregnancy; Z98.891 History of uterine scar from previous surgery; Z37.0 Single live birth; Z86.711 Personal history of pulmonary embolism
CPT/HCPCS: 36415; 51702; 59025; 59409; 82962; 85025; 85027; 86592; 86850; 86900; 86901; A9270-GY; J0290; J1650; J2590; J3010; J3490; J7030; J7120

== ENCOUNTER 2019-03-19 11:31 | Emergency (ER) | payer MEDICAID ==
[2019-03-19 11:45] VITALS: BP 125/92; PULSE 123
[2019-03-19] MEDS ORDERED: Sodium Chloride 0.9% 10 ML Syringe FLUSH PRN (11:49)
[2019-03-19] MEDS ORDERED: Sodium Chloride 0.9% 100 ML IV ONE (12:52)
[2019-03-19] MEDS ORDERED: Iopamidol 755 Mg/ML 100 ML Bottle IVPUSH ONE (12:52)
--- NOTE | 2019-03-19 13:36 | CT ---
CT chest Technique: Multiple axial sections through the chest were obtained. Intravenous contrast was utilized. Study has been performed as a pulmonary angiogram protocol. Findings: Multiple pulmonary emboli are seen within the distal right and left main pulmonary arteries with clot extending into the right and left lower segmental branches and right middle lobe segmental branch and right upper lobe segmental branch. Additional clot is seen within segmental upper left lobe branch. Aorta shows no aneurysm. No mesenteric abnormalities are seen. No pericardial thickening is seen. Visualized upper abdominal structures show no discrete abnormality. Lungs show no acute parenchymal change. No pleural effusions are seen. Bone window settings were reviewed which appear within normal limits for the patient's age. No right ventricular strain is seen at this time. Impression: 1. Extensive pulmonary emboli as noted above. Diagnostic code #5
[2019-03-19] MEDS ORDERED: Apixaban 5 MG Tab PO ONE (14:39)
--- NOTE | 2019-03-19 14:45 | EDM.PDOC ---
ED HPI GENERAL MEDICAL PROBLEM - General Chief Complaint: Chest Pain Stated Complaint: CHEST PAIN Time Seen by Provider: 03/19/19 11:44 Source of Information: Reports: Patient History Limitations: Reports: No Limitations - History of Present Illness INITIAL COMMENTS - FREE TEXT/NARRATIVE: The patient presents with chest pain and shortness of breath. This started yesterday. She has a history of a PE with her last child. She just gave 2 weeks ago and she is on lovenox. She has no fever, chills, cough, congestion or runny nose. She has no swelling in her legs. She did have some pain to her right leg at times but nothing now. She has no fever or chills. Onset: Gradual Duration: Day(s): (Yesterday) Location: Reports: Chest Quality: Reports: Sharp Severity: Moderate Improves with: Reports: None Worsens with: Reports: None Associated Symptoms: Reports: Chest Pain, Shortness of Breath. Denies: Cough, Fever/Chills, Headaches, Nausea/Vomiting Chest Pain Score (Numeric/FACES): 8 - Related Data Allergies Allergy/AdvReac Type Severity Reaction Status Date / Time No Known Allergies Allergy Verified 09/11/18 01:14 Home Meds: Home Meds Aspirin [Adult Aspirin] 81 mg PO DAILY 09/11/18 [History] Enoxaparin Sodium [Lovenox] 40 mg SQ DAILY 09/11/18 [History] Apixaban [Eliquis] 5 mg PO DAILY #30 tablet 03/19/19 [Rx] Apixaban [Eliquis] 10 mg PO BID #14 tablet 03/19/19 [Rx] Hydrocodone/Acetaminophen [Hydrocodon-Acetaminophen 5-325] 1 - 2 each PO Q6HR PRN #20 tablet 03/19/19 [Rx] Past Medical History Cardiovascular History: Reports: Hypertension Other Cardiovascular History: on baby asa and lovenox for HX of PE 3 weeks post Respiratory History: Reports: PE, TB Genitourinary History: Reports: Renal Calculus 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: Neurological History: Reports: Migraines Endocrine/Metabolic History: Reports: Diabetes, Gestational Hematologic History: Reports: Anticoagulation Therapy - Infectious Disease History Infectious Disease History: Reports: TB - Past Surgical History GI Surgical History: Reports: Cholecystectomy Female Surgical History: Reports: Section Social & Family History - Family History Family Medical History: Noncontributory - Tobacco Use Smoking Status *Q: Never Smoker - Caffeine Use Caffeine Use: Reports: Coffee - Recreational Drug Use Recreational Drug Use: No - Living Situation & Occupation Living situation: Reports: Occupation: Unemployed ED ROS GENERAL - Review of Systems Review Of Systems: See Below Constitutional: Reports: No Symptoms HEENT: Reports: No Symptoms Respiratory: Reports: Shortness of Breath Cardiovascular: Reports: Chest Pain Endocrine: Reports: No Symptoms GI/Abdominal: Reports: No Symptoms : Reports: No Symptoms Musculoskeletal: Reports: No Symptoms Skin: Reports: No Symptoms Neurological: Reports: No Symptoms Psychiatric: Reports: No Symptoms ED EXAM, GENERAL - Physical Exam Exam: See Below Exam Limited By: No Limitations General Appearance: Alert, No Apparent Distress Ears: Normal External Exam Nose: Normal Inspection Head: Atraumatic, Normocephalic Neck: Normal Inspection Respiratory/Chest: No Respiratory Distress, Lungs Clear, Normal Breath Sounds Cardiovascular: Regular Rate, Rhythm, No Edema, No Murmur GI/Abdominal: Soft, Non-Tender, No Organomegaly, No Mass Back Exam: Normal Inspection Extremities: Normal Inspection Neurological: Alert, Oriented, No Motor/Sensory Deficits EKG INTERPRETATION EKG Date: 03/19/19 Time: 11:43 Rhythm: Other (Sinus tachycardia) Rate (Beats/Min): 116 [place]: Normal P-Wave: Present QRS: Normal ST-T: Other (Inverted T waves in the anterior leads) QT: Normal Course - Vital Signs Last Recorded V/S: Last Vital Signs Temp 97.4 F 03/19/19 11:44 Pulse 123 H 03/19/19 11:44 Resp 20 03/19/19 11:44 BP 125/92 H 03/19/19 11:44 Pulse Ox 95 03/19/19 11:44 - Orders/Labs/Meds Orders: Active Orders 24 hr Category Date Time Status Cardiac Monitoring [RC] . DIRECTED Care 03/19/19 11:49 Active EKG Documentation Completion [RC] STAT Care 03/19/19 11:50 Active Peripheral IV Care [RC] . DIRECTED Care 03/19/19 11:50 Active Sodium Chloride 0.9% [Saline Flush] Med 03/19/19 11:49 Active 10 ml FLUSH ASDIRECTED PRN Peripheral IV Insertion Adult [OM.PC] Stat Oth 03/19/19 11:49 Ordered Medication Orders Sodium Chloride (Saline Flush) 10 ml FLUSH ASDIRECTED PRN PRN Reason: Keep Vein Open Last Admin: 03/19/19 11:57 Dose: 10 ml Labs: Laboratory Tests 03/19/19 03/19/19 03/19/19 Range/Units 11:50 11:50 11:50 WBC 8.34 (3.98-10.04) K/mm3 RBC 5.47 H (3.98-5.22) M/mm3 Hgb 12.7 D (11.2-15.7) gm/dl Hct 39.4 (34.1-44.9) % MCV 72.0 L (79.4-94.8) fl MCH 23.2 L (25.6-32.2) pg MCHC 32.2 (32.2-35.5) g/dl RDW Std Deviation 47.5 H (36.4-46.3) fL Plt Count 290 (182-369) K/mm3 MPV 9.4 (9.4-12.3) fl Neut % (Auto) 60.3 (34.0-71.1) % Lymph % (Auto) 31.5 (19.3-51.7) % [place] % (Auto) 4.7 (4.7-12.5) % Eos % (Auto) 2.8 (0.7-5.8) Baso % (Auto) 0.5 (0.1-1.2) % Neut # (Auto) 5.03 (1.56-6.13) K/mm3 Lymph # (Auto) 2.63 (1.18-3.74) K/mm3 [place] # (Auto) 0.39 H (0.24-0.36) K/mm3 Eos # (Auto) 0.23 (0.04-0.36) K/mm3 Baso # (Auto) 0.04 (0.01-0.08) K/mm3 Manual Slide Review Abnormal smear D-Dimer, Quantitative 21.00 H (0.19-0.50) mg/L Sodium 139 (136-145) mEq/L Potassium 4.0 (3.5-5.1) mEq/L Chloride 104 (98-107) mEq/L Carbon Dioxide 23 (21-32) mEq/L Anion Gap 16.0 H (5-15) BUN 11 (7-18) mg/dL Creatinine 0.9 (0.55-1.02) mg/dL Est Cr Clr Drug Dosing 71.63 mL/min Estimated GFR (MDRD) > 60 (>60) mL/min BUN/Creatinine Ratio 12.2 L (14-18) Glucose 108 H (74-106) mg/dL Calcium 9.5 (8.5-10.1) mg/dL Total Bilirubin 0.4 (0.2-1.0) mg/dL AST 16 (15-37) U/L ALT 26 (14-59) U/L Alkaline Phosphatase 120 H (46-116) U/L Troponin I 0.036 (0.00-0.056) ng/mL Total Protein 8.1 (6.4-8.2) g/dl Albumin 3.5 (3.4-5.0) g/dl Globulin 4.6 gm/dL Albumin/Globulin Ratio 0.8 L (1-2) Meds: Medications Generic Name Dose Route Start Last Admin Trade Name Freq PRN Reason Stop Dose Admin Sodium Chloride 10 ml 03/19/19 11:49 03/19/19 11:57 Saline Flush FLUSH 10 ml ASDIRECTED PRN Administration Keep Vein Open Discontinued Medications Generic Name Dose Route Start Last Admin Trade Name Freq PRN Reason Stop Dose Admin Apixaban 10 mg 03/19/19 14:39 Eliquis PO 03/19/19 14:40 ONETIME ONE Sodium Chloride 100 mls @ 4 mls/sec 03/19/19 12:52 Normal Saline IV 03/19/19 12:53 ONETIME ONE Iopamidol 100 ml 03/19/19 12:52 Isovue-370 (76%) IVPUSH 03/19/19 12:53 ONETIME ONE - Re-Assessments/Exams Free Text/Narrative Re-Assessment/Exam: 03/19/19 14:48 I ordered an IV saline lock, EKG, CT angio of her chest and labs. Her EKG shows a sinus tachycardia with a flipped T wave in the anterior leads. Her CBC and CMP look good. Her troponin is negative. 03/19/19 15:01 Her D-dimer is [address] shows extensive pulmonary emboli. I will give her a dose of eliquis here and a prescription for more. Departure - Departure Time of Disposition: 15:10 Disposition: Home, Self-Care 01 Condition: Good Clinical Impression: Pulmonary emboli Qualifiers: Pulmonary embolism type: other Chronicity: acute Acute cor pulmonale presence: without acute cor pulmonale Qualified Code(s): I26.99 - Other pulmonary embolism without acute cor pulmonale Prescriptions: Hydrocodone/Acetaminophen [Hydrocodon-Acetaminophen 5-325] 1 - 2 each PO Q6HR PRN #20 tablet PRN Reason: Pain Apixaban [Eliquis] 10 mg PO BID #14 tablet Referrals: Elisabeth Beebe PA-C [Primary Care Provider] - 1 Week Forms: ED Department Discharge Additional Instructions: Take the eliquis 2 pills or 10mg 2 times per day for 7 days and then take 5mg daily. Take the hydrocodone as needed for pain. Please return if you are worse. - My Orders Last 24 Hours: My Active Orders 03/19/19 11:49 Cardiac Monitoring [RC] . DIRECTED Sodium Chloride 0.9% [Saline Flush] 10 ml FLUSH ASDIRECTED PRN Peripheral IV Insertion Adult [OM.PC] Stat 03/19/19 11:50 EKG Documentation Completion [RC] STAT Peripheral IV Care [RC] . DIRECTED - Assessment/Plan Last 24 Hours: My Active Orders 03/19/19 11:49 Cardiac Monitoring [RC] . DIRECTED Sodium Chloride 0.9% [Saline Flush] 10 ml FLUSH ASDIRECTED PRN Peripheral IV Insertion Adult [OM.PC] Stat 03/19/19 11:50 EKG Documentation Completion [RC] STAT Peripheral IV Care [RC] . DIRECTED
== END 2019-03-19 15:24 | disposition home or self-care (01) ==
LOC: JD.ED 11:31
DX: O88.23 Thromboembolism in the puerperium (principal); O16.5 Unspecified maternal hypertension, complicating the puerperium; O24.439 Gestational diabetes mellitus in the puerperium, unspecified control; Z79.01 Long term (current) use of anticoagulants; Z79.82 Long term (current) use of aspirin; Z79.899 Other long term (current) drug therapy
CPT/HCPCS: 36415; 71275; 71275-26; 80053; 84484; 85025; 85379; 93005; 93010; 99284; 99285-25

== ENCOUNTER 2019-03-21 10:22 | Emergency (ER) | payer MEDICAID ==
[2019-03-21 10:30] VITALS: BP 122/81; PULSE 122
[2019-03-21] MEDS ORDERED: Heparin Sodium 5,000 Units/ML Vial IVPUSH ONE ×2 (10:48→11:17)
[2019-03-21] MEDS ORDERED: Heparin Sodium/D5W 25,000 UNITS/500 ML BAG IV SCH (11:00)
--- NOTE | 2019-03-21 11:05 | EDM.PDOC ---
ED HPI GENERAL MEDICAL PROBLEM - General Chief Complaint: Respiratory Problem Stated Complaint: SOB SENT BY [facility] Time Seen by Provider: 03/21/19 10:32 Source of Information: Reports: Patient, Provider History Limitations: Reports: No Limitations - History of Present Illness INITIAL COMMENTS - FREE TEXT/NARRATIVE: The patient presents with chest pain and shortness of breath. She was seen by myself on Wednesday. She is post 2 weeks with a delivery date of 03/13/19 by . She has a history of pulmonary embolism with her last . She was put on lovenox before delivery and after. She developed chest pain and shortness of breath a couple of days ago. I evaluated her here and I did an EKG that showed some flipped T waves in the anterior leads and the CT angio showed extensive PE and no right heart strain. I switched her to eliquis. She was feeling worse and went in to see Dr Gomez today. Her oxygen saturations did drop to 86% on room air. Dr Gomez did another EKG and she had more extensive flipped T waves in the anterior leads that went from V1 to V4 now. Dr Gomez called [facility] in [place] and talked with Dr Werner the abrasive mixer and Dr Damico and they felt she was having more strain on her heart and that she needed to come to [place]. The patient was sent over here to be sent to [place]. She has some shortness of breath and chest pain. She has no fever or chills. She has no abdominal pain, nausea or vomiting. Onset: Gradual Duration: Day(s): Location: Reports: Chest Quality: Reports: Pressure Severity: Moderate Improves with: Reports: None Worsens with: Reports: None Associated Symptoms: Reports: Chest Pain, Shortness of Breath. Denies: Cough, Fever/Chills, Headaches, Nausea/Vomiting Chest Pain Score (Numeric/FACES): 5 - Related Data Allergies Allergy/AdvReac Type Severity Reaction Status Date / Time No Known Allergies Allergy Verified 09/11/18 01:14 Home Meds: Home Meds Aspirin [Adult Aspirin] 81 mg PO DAILY 09/11/18 [History] Apixaban [Eliquis] 10 mg PO BID #14 tablet 03/19/19 [Rx] Hydrocodone/Acetaminophen [Hydrocodon-Acetaminophen 5-325] 1 - 2 each PO Q6HR PRN #20 tablet 03/19/19 [Rx] Past Medical History Cardiovascular History: Reports: Hypertension Other Cardiovascular History: on baby asa and lovenox for HX of PE 3 weeks post Respiratory History: Reports: PE, TB Genitourinary History: Reports: Renal Calculus 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: Neurological History: Reports: Migraines Endocrine/Metabolic History: Reports: Diabetes, Gestational Hematologic History: Reports: Anticoagulation Therapy - Infectious Disease History Infectious Disease History: Reports: TB - Past Surgical History GI Surgical History: Reports: Cholecystectomy Female Surgical History: Reports: Section Social & Family History - Family History Family Medical History: Noncontributory - Tobacco Use Smoking Status *Q: Never Smoker - Caffeine Use Caffeine Use: Reports: Coffee - Recreational Drug Use Recreational Drug Use: No - Living Situation & Occupation Living situation: Reports: Occupation: Unemployed ED ROS GENERAL - Review of Systems Review Of Systems: See Below Constitutional: Reports: No Symptoms HEENT: Reports: No Symptoms Respiratory: Reports: Shortness of Breath Cardiovascular: Reports: Chest Pain Endocrine: Reports: No Symptoms GI/Abdominal: Reports: No Symptoms : Reports: No Symptoms Musculoskeletal: Reports: No Symptoms ED EXAM, GENERAL - Physical Exam Exam: See Below Exam Limited By: No Limitations General Appearance: Alert, No Apparent Distress Ears: Normal External Exam Nose: Normal Inspection Throat/Mouth: Normal Inspection Neck: Normal Inspection, Supple, Non-Tender Respiratory/Chest: No Respiratory Distress, Lungs Clear, Normal Breath Sounds Cardiovascular: No Edema, No Murmur, Tachycardia GI/Abdominal: Soft, Non-Tender, No Organomegaly, No Mass Back Exam: Normal Inspection Extremities: Normal Inspection Course - Vital Signs Last Recorded V/S: Last Vital Signs Temp 97.1 F 03/21/19 10:26 Pulse 122 H 03/21/19 10:26 Resp 24 H 03/21/19 10:26 BP 122/81 03/21/19 10:26 Pulse Ox 96 03/21/19 10:36 - Orders/Labs/Meds Orders: Active Orders 24 hr Category Date Time Status Cardiac Monitoring [RC] . DIRECTED Care 03/21/19 10:36 Active Oxygen Therapy [RC] PRN Care 03/21/19 10:36 Active Peripheral IV Care [RC] . DIRECTED Care 03/21/19 10:37 Active CBC WITH AUTO DIFF [HEME] Stat Lab 03/21/19 10:49 Results COMPREHENSIVE METABOLIC PN,CMP [CHEM] Stat Lab 03/21/19 10:49 Received TROPONIN I [CHEM] Stat Lab 03/21/19 10:49 Received Heparin Sodium/D5W [Heparin 25,000 Units in D5W 500 ML] Med 03/21/19 11:00 Active 25,000 units in 500 ml IV TITRATE Sodium Chloride 0.9% [Saline Flush] Med 03/21/19 10:36 Active 10 ml FLUSH ASDIRECTED PRN Peripheral IV Insertion Adult [OM.PC] Stat Oth 03/21/19 10:36 Ordered Medication Orders Heparin Sodium/Dextrose (Heparin 25,000 Units In D5w 500 Ml) 25,000 units in 500 mls @ 18.597 mls/hr IV TITRATE MARTÍNEZ; Protocol Sodium Chloride (Saline Flush) 10 ml FLUSH ASDIRECTED PRN PRN Reason: Keep Vein Open Labs: Laboratory Tests 03/21/19 Range/Units 10:49 WBC 9.41 (3.98-10.04) K/mm3 RBC 5.15 (3.98-5.22) M/mm3 Hgb 11.8 (11.2-15.7) gm/dl Hct 37.0 (34.1-44.9) % MCV 71.8 L (79.4-94.8) fl MCH 22.9 L (25.6-32.2) pg MCHC 31.9 L (32.2-35.5) g/dl RDW Std Deviation 46.7 H (36.4-46.3) fL Plt Count 306 (182-369) K/mm3 MPV 9.6 (9.4-12.3) fl Neut % (Auto) 68.8 (34.0-71.1) % Lymph % (Auto) 23.0 (19.3-51.7) % [place] % (Auto) 6.9 (4.7-12.5) % Eos % (Auto) 0.5 L (0.7-5.8) Baso % (Auto) 0.5 (0.1-1.2) % Neut # (Auto) 6.47 H (1.56-6.13) K/mm3 Lymph # (Auto) 2.16 (1.18-3.74) K/mm3 [place] # (Auto) 0.65 H (0.24-0.36) K/mm3 Eos # (Auto) 0.05 (0.04-0.36) K/mm3 Baso # (Auto) 0.05 (0.01-0.08) K/mm3 Meds: Medications Generic Name Dose Route Start Last Admin Trade Name Freq PRN Reason Stop Dose Admin Heparin Sodium/Dextrose 25,000 units in 500 mls @ 18.597 mls/hr 03/21/19 11: 00 Heparin 25,000 Units In D5w 500 Ml IV TITRATE MARTÍNEZ Protocol 10 UNITS/KG/HR Sodium Chloride 10 ml 03/21/19 10:36 Saline Flush FLUSH ASDIRECTED PRN Keep Vein Open Discontinued Medications Generic Name Dose Route Start Last Admin Trade Name Freq PRN Reason Stop Dose Admin Heparin Sodium (Porcine) 10 units 03/21/19 10:48 Heparin Sodium IVPUSH 03/21/19 10:49 .BOLUS ONE - Re-Assessments/Exams Free Text/Narrative Re-Assessment/Exam: 03/21/19 11:06 I ordered oxygen, IV saline lock and labs. Her EKG from the clinic shows a flipped T waves in the anterior leads that are more pronounced then 2 days ago. I called [facility] in [place] and talked with Dr Teran the hospitalist and Dr Riley the critical care doctor and they accepted the patient. They did recommend heparin so I started a drip. The patient will be going by ground ambulance. Departure - Departure Time of Disposition: 11:10 Disposition: DC/Tfer to Acute Hospital 02 Condition: Poor Clinical Impression: Hypoxia Pulmonary embolism Qualifiers: Pulmonary embolism type: other Chronicity: acute Acute cor pulmonale presence: without acute cor pulmonale Qualified Code(s): I26.99 - Other pulmonary embolism without acute cor pulmonale - Discharge Information Referrals: Elizabeth Gomez MD [Primary Care Provider] - - My Orders Last 24 Hours: My Active Orders 03/21/19 10:36 Cardiac Monitoring [RC] . DIRECTED Oxygen Therapy [RC] PRN Sodium Chloride 0.9% [Saline Flush] 10 ml FLUSH ASDIRECTED PRN Peripheral IV Insertion Adult [OM.PC] Stat 03/21/19 10:37 Peripheral IV Care [RC] . DIRECTED 03/21/19 10:49 CBC WITH AUTO DIFF [HEME] Stat COMPREHENSIVE METABOLIC PN,CMP [CHEM] Stat TROPONIN I [CHEM] Stat 03/21/19 11:00 Heparin Sodium/D5W [Heparin 25,000 Units in D5W 500 ML] 25,000 units in 500 ml IV TITRATE - Assessment/Plan Last 24 Hours: My Active Orders 03/21/19 10:36 Cardiac Monitoring [RC] . DIRECTED Oxygen Therapy [RC] PRN Sodium Chloride 0.9% [Saline Flush] 10 ml FLUSH ASDIRECTED PRN Peripheral IV Insertion Adult [OM.PC] Stat 03/21/19 10:37 Peripheral IV Care [RC] . DIRECTED 03/21/19 10:49 CBC WITH AUTO DIFF [HEME] Stat COMPREHENSIVE METABOLIC PN,CMP [CHEM] Stat TROPONIN I [CHEM] Stat 03/21/19 11:00 Heparin Sodium/D5W [Heparin 25,000 Units in D5W 500 ML] 25,000 units in 500 ml IV TITRATE
[2019-03-21] MEDS: Sodium Chloride 0.9% 10 ML Syringe FLUSH PRN ×2 (11:18→11:20)
== END 2019-03-21 12:00 ==
LOC: JD.ED 10:22
DX: O88.23 Thromboembolism in the puerperium (principal); O16.5 Unspecified maternal hypertension, complicating the puerperium; O24.439 Gestational diabetes mellitus in the puerperium, unspecified control; Z79.82 Long term (current) use of aspirin; Z79.01 Long term (current) use of anticoagulants
CPT/HCPCS: 36415; 80053; 84484; 85025; 94762; 96365; 99285; J1644; 99284

== ENCOUNTER 2020-01-18 16:16 | Emergency (ER) | payer OTHER, MEDICAID ==
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
[2020-01-18 16:56] VITALS: BP 137/104; PULSE 80
--- NOTE | 2020-01-19 09:20 | CT ---
Head CT Technique: Multiple axial sections through the brain were obtained. Intravenous contrast was not utilized. Comparison: No prior intracranial imaging is available. Findings: Ventricles along with basal cisterns and sulci over the convexities are within normal limits for the patient's age. No abnormal parenchymal densities are seen. No evidence of intracranial hemorrhage. No midline shift or mass-effect is seen. Bone window settings were reviewed. No acute calvarial finding is seen. Visualized mastoid sinuses and visualized paranasal sinuses show nothing acute. Impression: 1. Nothing acute is appreciated on noncontrast head CT exam. Diagnostic code #1 This report was dictated in MDT I agree with preliminary report from [facility], finalized on 01/18/20, 6:31 PM Central Daylight Time
--- NOTE | 2020-01-19 09:20 | CT ---
CT cervical spine Technique: Multiple axial sections were obtained from above C1 inferiorly to the bottom of T2. Reconstructed sagittal and coronal images were reviewed. Findings: Vertebral body heights and disc spaces are maintained. Vertebral bodies and posterior arches are intact. No fracture is appreciated. No bony central or bony neural foraminal stenosis is seen. No abnormal subluxation is seen. Impression: 1. Nothing acute is appreciated on CT study of the cervical spine. Diagnostic code #1 This report was dictated in MDT I agree with preliminary report from [facility], finalized on 01/14, 6:35 PM Central Daylight Time
== END 2020-01-18 18:23 | disposition home or self-care (01) ==
LOC: JD.ED 16:16
DX: O9A.23 Injury, poisoning and certain other consequences of external causes complicating the puerperium (principal); S13.9XXA Sprain of joints and ligaments of unspecified parts of neck, initial encounter; S00.03XA Contusion of scalp, initial encounter; I10 Essential (primary) hypertension; Z79.01 Long term (current) use of anticoagulants; Z86.711 Personal history of pulmonary embolism; V43.63XA Car passenger injured in collision with pick-up truck in traffic accident, initial encounter
CPT/HCPCS: 70450; 70450-26; 72125; 72125-26; 99282; 99284-25